=== PATIENT | male | born 1975 | race African-American/Black ===

== ENCOUNTER 2020-06-18 19:23 | Emergency (ER) | payer BC, OTHER ==
[~2020-06-18] VITALS: Ht 182.9 cm; Wt 95.3 kg
[2020-06-18] MEDS ORDERED: KEFLEX500 M1 PO (20:41)
[2020-06-18 20:56] VITALS: BP 114/84
== END 2020-06-18 20:56 | disposition home or self-care (01) ==
LOC: ER 19:23
DX: S61.210A Laceration without foreign body of right index finger without damage to nail, initial encounter (principal); W26.0XXA Contact with knife, initial encounter; Y93.89 Activity, other specified; Y92.89 Other specified places as the place of occurrence of the external cause; Y99.8 Other external cause status